=== PATIENT | male | born 1950 | race Caucasian/White ===

== ENCOUNTER 2021-08-08 10:05 | Outpatient (CLI) | payer MEDICARE, BC, SELFPAY ==
[2021-08-08 11:08] LABS: Slide Review Reflex No
[2021-08-08 11:40] LABS: Appearance Urine Clear (Clear); Bilirubin Urine Negative (Negative); Blood Urine Negative (Negative); Glucose Urine Negative (Negative); Ketones Urine Negative (Negative); Leukocyte Esterase Urine Negative (Negative); Nitrite Urine Negative (Negative); Protein Urine Negative (Negative); Specific Gravity Urine 1.025 (1.000-1.030); Urobilinogen Urine 0.2 (0.2-1.0); pH Urine 5.5 (5.0-8.5)
[2021-08-08 11:43] LABS: Color Urine Dark Yellow (Yellow)
[2021-08-08 13:36] LABS: Basophils Absolute Auto 0.06 K/uL (0.00-0.30); Eosinophils Absolute Auto 0.25 K/uL (0.00-0.50); Eosinophils Percent Auto 4.4 % (0.0-7.0); Hematocrit 45.1 % (37.0-53.0); Hemoglobin* 15.2 gm/dL (13.5-17.5); Immature Granulocytes Abs Auto 0.01 K/uL (0.00-0.30); Lymphocytes Absolute Auto 1.52 K/uL (0.90-2.90); Lymphocytes Percent Auto 26.5 % (20-44); Mean Corpuscular HGB Conc 34 gm/dL (32-36); Mean Corpuscular Hemoglobin 30 pg (26-34); Mean Corpuscular Volume 88 fL (80-100); Monocytes Percent Auto 9.1 % (0.0-11.0); Neutrophils Absolute Auto 3.37 K/uL (1.7-7.0); Neutrophils Percent Auto 58.8 % (42.0-72.0); Platelet Count* 255 K/uL (140-440); RDW Coefficient of Variation % 12.9 % (11.5-15.5); Red Blood Count 5.12 m/uL (4.30-5.90); White Blood Count* 5.73 K/uL (4.50-11.00)
[2021-08-08 15:54] LABS: Cholesterol* 216 mg/dL (90-199)
[2021-08-08 15:55] LABS: HDL Cholesterol* 42 mg/dL (>=40); LDL Cholesterol Calculated 154 mg/dL (<100); Triglycerides* 100 mg/dL (40-149)
[2021-08-08 16:23] LABS: PSA Screen* 0.78 ng/mL (0.10-4.00)
[2021-08-08 16:42] LABS: Vitamin B12* 372 pg/mL (243-894)
[2021-08-08 23:16] LABS: Blood Urea Nitrogen* 14 mg/dL (7-30); Calcium* 9.2 mg/dL (8.4-10.6); Carbon Dioxide* 23 mmol/L (20-32); Chloride* 107 mmol/L (96-114); Creatinine* 0.7 mg/dL (0.5-1.5); Estimated Glomerular Filt Rate 98.51; Glucose* 157 mg/dL (60-115); Sodium* 139 mmol/L (135-149)
== END 2021-08-08 10:06 | disposition home or self-care (01) ==
PROVIDERS: PCP Nurse Practitioner Family; Visit Provider Nurse Practitioner Family
DX: Z00.00 Encounter for general adult medical examination without abnormal findings (principal); L60.3 Nail dystrophy; M25.511 Pain in right shoulder; J34.89 Other specified disorders of nose and nasal sinuses; Z13.0 Encounter for screening for diseases of the blood and blood-forming organs and certain disorders involving the immune mechanism; Z13.89 Encounter for screening for other disorder; Z12.5 Encounter for screening for malignant neoplasm of prostate; Z13.6 Encounter for screening for cardiovascular disorders
CPT/HCPCS: 36415; 80048; 80061; 81003; 82607; 84153; 85025

== ENCOUNTER 2021-11-07 09:36 | Outpatient (CLI) | payer MEDICARE, BC, SELFPAY ==
[2021-11-07 10:21] LABS: Hemoglobin A1C* 7.2 % (0-5.6)
[2021-11-07 15:14] LABS: Chloride* 103 mmol/L (96-114); Potassium* 4.6 mmol/L (3.6-5.1); Sodium* 138 mmol/L (135-149)
[2021-11-07 15:17] LABS: Blood Urea Nitrogen* 14 mg/dL (7-30); Carbon Dioxide* 26 mmol/L (20-32); Creatinine* 0.6 mg/dL (0.5-1.5); Estimated Glomerular Filt Rate 103 ml/min; Glucose* 189 mg/dL (60-115)
[2021-11-07 15:18] LABS: Calcium* 9.6 mg/dL (8.4-10.6)
== END 2021-11-07 09:37 | disposition home or self-care (01) ==
LOC: KYNREF 09:37
PROVIDERS: PCP Nurse Practitioner Family; Visit Provider Nurse Practitioner Family
DX: R42 Dizziness and giddiness (principal); R73.9 Hyperglycemia, unspecified
CPT/HCPCS: 36415; 80048; 83036

== ENCOUNTER 2023-06-03 10:53 | Outpatient (CLI) | payer MEDICARE, BC, SELFPAY | END 2023-06-03 10:54 | disposition home or self-care (01) | PROVIDERS: PCP Nurse Practitioner Family; Visit Provider Nurse Practitioner Family | DX: Z12.5 Encounter for screening for malignant neoplasm of prostate (principal); E11.9 Type 2 diabetes mellitus without complications | CPT/HCPCS: 80053; 80061; 82043; 82570; 85027; G0103 ==

== ENCOUNTER 2023-12-05 09:43 | Outpatient (CLI) | payer MEDICARE, BC, SELFPAY ==
--- NOTE | 2023-12-05 10:00 | CRLHL7_ITS ---
For Patients: As a result of the Century Cures Act, medical imaging exams and procedure reports are released immediately into your electronic medical record. You may view this report before your referring provider. If you have questions, please contact your health care provider. INDICATION: Hip pain. Osteoarthritis. COMPARISON: Plain films 26 November 2023. TECHNIQUE: 116 mL Isovue-370 IV contrast. FINDINGS: Atherosclerosis of aorta. Ectatic atherosclerotic iliac vessels. Left hip prosthesis. Associated streak artifact. No loosening or fracture around the prosthesis components. No effusion of the joint. No periarticular fluid collection. Left gluteal musculature is normal. Moderate osteoarthritis at the sacroiliac joints with subchondral sclerosis and anterior osteophytes more pronounced on the right. Small volume of vacuum joint air bilaterally. Sclerotic hypertrophic moderate facet arthrosis visualized lumbosacral spine. Unusual fluid and air collection with thin intermediate attenuation margin cephalad from the right hip joint in the gluteus minimus with diameter portable 20 x 17 mm. Severe osteoarthritis of the right hip with [id number] contact superiorly and osteophytes of acetabulum and femoral head. No definite avascular necrosis. Small effusion suboptimally assessed. No synovitis. No intra-articular body. IMPRESSION: 1. Gas-filled ganglion cephalad from the significantly degenerated osteoarthritic right hip. 2. Osteoarthritis sacroiliac joints. 3. Left hip prosthesis. No evidence for complication. Please note that all CT scans at this facility use dose modulation, iterative reconstruction, and/or weight-based dosing when appropriate to reduce radiation dose to as low as reasonably achievable. Dictated by Christoph Medina MD @ 12/06/2023 10:23:38 AM (Electronically Signed)
[2023-12-05 10:15] LABS: Creatinine* 0.7 mg/dL (0.5-1.5); Estimated Glomerular Filt Rate 97 ml/min
== END 2023-12-05 09:44 | disposition home or self-care (01) ==
PROVIDERS: PCP Nurse Practitioner Family; Visit Provider Nurse Practitioner Family
DX: M16.11 Unilateral primary osteoarthritis, right hip (principal)
CPT/HCPCS: 36415; 73701; 82565; Q9967

== ENCOUNTER 2024-01-02 09:26 | Outpatient (CLI) | payer MEDICARE, BC, SELFPAY | END 2024-01-02 09:27 | disposition home or self-care (01) | PROVIDERS: PCP Nurse Practitioner Family; Visit Provider Nurse Practitioner Family | DX: Z01.818 Encounter for other preprocedural examination (principal) | CPT/HCPCS: 80053; 85025 ==

== ENCOUNTER 2024-07-23 16:13 | Outpatient (CLI) | payer MEDICARE, BC, SELFPAY | END 2024-07-23 16:14 | disposition home or self-care (01) | PROVIDERS: PCP Nurse Practitioner Family; Visit Provider Nurse Practitioner Family | DX: M79.89 Other specified soft tissue disorders (principal) | CPT/HCPCS: 85025; 85379; 85651; 86140 ==

== ENCOUNTER 2024-12-29 09:29 | Outpatient (CLI) | payer MEDICARE, BC, SELFPAY | END 2024-12-29 09:30 | disposition home or self-care (01) | PROVIDERS: PCP Nurse Practitioner Family; Visit Provider Nurse Practitioner Family | DX: E11.9 Type 2 diabetes mellitus without complications (principal); G25.81 Restless legs syndrome; Z79.899 Other long term (current) drug therapy; Z13.0 Encounter for screening for diseases of the blood and blood-forming organs and certain disorders involving the immune mechanism; Z12.5 Encounter for screening for malignant neoplasm of prostate | CPT/HCPCS: 80053; 80061; 82043; 82306; 82570; 82607; 83735; 84443; 85025; G0103 ==